=== PATIENT | female | born 1955 | race Hispanic/Latino ===

== ENCOUNTER 2018-12-26 12:05 | Emergency (ER) | payer MEDICARE ==
[2018-12-26 12:18] VITALS: BP 131/73
--- NOTE | 2018-12-26 12:18 | Event Note ---
ED Screening Note ED Screening Note: sp gl mechanical fall yesterday co r foot and r wrist pain just walked from mamogram- [facility] This initial assessment/diagnostic orders/clinical plan/treatment(s) is/are subject to change based on patients health status, clinical progression and re- assessment by fellow clinical providers in the ED. Further treatment and workup at subsequent clinical providers discretion. Patient/guardian urged not to elope from the ED as their condition may be serious if not clinically assessed and managed. Initial orders include: xray recheck HR in [facility]
--- NOTE | 2018-12-26 13:01 | XRay Report ---
Right foot, 3 views INDICATION: Pain in toes after fall yesterday. COMPARISON: None. IMPRESSION: Mild osteopenia is evident. Mild diffuse osteoarthritic changes are noted throughout th e foot. No erosive joint pathology. No displaced fracture is identified on x-ray. There is moderate s oft tissue swelling of the distal foot. Signer Name: Isidro Mayer Jr, MD Signed: 12/26/2018 12:56 PM Workstation Name: [id number]
--- NOTE | 2018-12-26 13:02 | XRay Report ---
Right wrist, 3 views INDICATION: Right wrist pain after fall. COMPARISON: None. IMPRESSION: No acute osseous or soft tissue abnormality. Mild osteopenia is noted. Signer Name: Isidro Mayer Jr, MD Signed: 12/26/2018 12:57 PM Workstation Name: [id number]
--- NOTE | 2018-12-26 14:02 | Emergency Department Report ---
ED Fall HPI - General Chief Complaint: Extremity Injury, Upper Stated Complaint: RT WRIST PAIN Time Seen by Provider: 12/26/18 12:17 Source: patient Mode of arrival: Ambulatory - History of Present Illness Initial Comments: 63-year-old female to emergency department complaining of pain to the right wrist and right foot after a fall from fall in the yard yesterday. Juliano magallanes states she was ambulating and tripped and fell 4 striking her right foot and wrist on the ground, causing pain and swelling. Pain is dull, throbbing with range of motion and weightbearing and movement. She reports no numbness or tingling. -: Sudden Fall From: standing Loss of Consciousness: none Prolonged Down Time?: no Symptoms Prior to Fall: none Location - Extremities: Right: Foot Severity: moderate Quality: dull Associated Symptoms: denies: neck pain, numbness, shortness of breath, abdominal pain, hematuria, lightheaded, vertigo - Related Data Allergies Allergy/AdvReac Type Severity Reaction Status Date / Time aspirin Allergy Hives Verified 12/26/18 12:09 codeine Allergy Anaphylaxis Verified 12/26/18 12:09 ED Review of Systems ROS: Stated complaint: RT WRIST PAIN Other details as noted in HPI Comment: All other systems reviewed and negative ED Past Medical Hx - Past Medical History Previous Medical History?: Yes Hx Diabetes: Yes - Surgical History Past Surgical History?: Yes Additional Surgical History: Thyroidectomy - Social History Smoking Status: Current Every Day Smoker Substance Use Type: None ED Physical Exam - General Limitations: No Limitations General appearance: alert, in no apparent distress - Head Head exam: Present: atraumatic, normocephalic - Eye Eye exam: Present: normal appearance, PERRL, EOMI - ENT ENT exam: Present: mucous membranes moist - Neck Neck exam: Present: normal inspection - Respiratory Respiratory exam: Present: normal lung sounds bilaterally. Absent: respiratory distress, wheezes, rhonchi, accessory muscle use - Cardiovascular Cardiovascular Exam: Present: regular rate, normal rhythm, tachycardia. Absent: systolic murmur, diastolic murmur, rubs, gallop - GI/Abdominal GI/Abdominal exam: Present: soft, normal bowel sounds - Extremities Exam Extremities exam: Present: normal inspection, tenderness (no family decided on the right wrist. There is tenderness in the ulnar triquetral ligament region before range of motion is noted. Negative Sandeep, no. 4 supination and pronation. 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 Pulses 2+. Capillary refills are brisk.), other (right foot is a contusion to the dorsal surface of the foot. Pulses 2 posterior calf. Dorsalis pedis and posterior tibialis region. For full range of motion. Drawer test is normal. On the ankle) - Back Exam Back exam: Present: normal inspection - Neurological Exam Neurological exam: Present: alert, oriented X3, CN II-XII intact - Psychiatric Psychiatric exam: Present: normal affect, normal mood - Skin Skin exam: Present: warm, dry, intact, normal color. Absent: rash ED Course Vital Signs 12/26/18 12:16 Temperature 98.0 F Pulse Rate 127 H Respiratory 24 Rate Blood Pressure 131/73 O2 Sat by Pulse 95 Oximetry ED Medical Decision Making - Medical Decision Making 62-year-old female in pain management presents much department after a fall suspecting some trauma to her foot and ankle undoubtable fracture. Reports no numbness or tingling. States that the pain and swelling has continued to finger since the onset. Critical care attestation.: If time is entered above; I have spent that time in minutes in the direct care of this critically ill patient, excluding procedure time. ED Disposition Clinical Impression: Foot contusion, Wrist strain Disposition: - TO HOME OR SELFCARE Is pt being admited?: No Does the pt Need Aspirin: No Condition: Stable Instructions: Muscle Strain (ED), Foot Contusion (ED), Ice Pack Application (ED), RICE Therapy (ED) Referrals: MARY BELTRÁN MD [Primary Care Provider] - 3-5 Days
== END 2018-12-26 14:48 | disposition home or self-care (01) ==
LOC: ED 12:05
DX: S66.911A Strain of unspecified muscle, fascia and tendon at wrist and hand level, right hand, initial encounter (principal); S90.31XA Contusion of right foot, initial encounter; E11.9 Type 2 diabetes mellitus without complications; F17.200 Nicotine dependence, unspecified, uncomplicated; Z98.890 Other specified postprocedural states; Z88.6 Allergy status to analgesic agent; W19.XXXA Unspecified fall, initial encounter; Y93.89 Activity, other specified; Y92.096 Garden or yard of other non-institutional residence as the place of occurrence of the external cause; Y99.8 Other external cause status